=== PATIENT | male | born 1955 | race Caucasian/White ===

== ENCOUNTER 2019-09-08 17:54 | Observation (INO) ==
[2019-09-08 18:44] LABS: Immature Granulocytes % 0.6 % (0-4)
[2019-09-08 18:46] LABS: Basophils % 0.5 %; Eosinophils # 0.2 K/mcL (0.0-0.6); Eosinophils % 1.8 %; Hemoglobin 8.3 g/dL (12.9-16.9); Lymphocytes # 1.9 K/mcL (0.6-4.6); Lymphocytes % 21.4 %; Mean Corpuscular HGB Conc 29.6 g/dL (31.6-35.5); Mean Corpuscular Hemoglobin 25.2 pg (28.0-33.3); Mean Corpuscular Volume 84.8 fL (83.0-100.0); Mean Platelet Volume 8.9 fL (9.4-12.4); Monocytes # 0.7 K/mcL (0.0-1.3); Monocytes % 8.4 %; Neutrophils # 5.9 K/mcL (1.6-8.9); Platelet Count 332 K/mcL (140-400); Red Cell Distribution Width 17.8 % (11.5-14.5); Segmented Neutrophils % 67.3 %; White Blood Count 8.7 K/mcL (4.3-11.1)
[2019-09-08 18:51] LABS: Prothrombin Time 10.8 Seconds (9.4-12.1)
[2019-09-08 19:10] LABS: Anisocytosis 1+ (Not Present); Hypochromasia Present (Not Present); Platelet Estimate Normal (Normal)
[2019-09-08] MEDS ORDERED: Isovue-370 500 ML BOTTLE IVP ONE (19:15)
[2019-09-08 19:21] LABS: BUN/Creatinine Ratio 17 (6-26); Blood Urea Nitrogen 17 mg/dL (8-23); Calcium 8.2 mg/dL (8.6-10.3); Carbon Dioxide 18 mEq/L (23-29); Chloride 110 mEq/L (98-107); Glucose 140 mg/dL (70-105); Osmolality,Calculated 294 (280-300); Potassium 3.5 mEq/L (3.5-5.1); Sodium 140 mEq/L (136-145); Troponin I < 0.03 ng/mL (< 0.04); eGFR For African Americans > 60 (> 60); eGFR For Non-African Americans > 60 (> 60)
[2019-09-08] MEDS ORDERED: Calcium Gluconate 1gm/50mL 1 GM/50 ML BAG IVPB ONE (21:54)
[2019-09-09] MEDS ORDERED: Morphine Sulfate 2 MG/ML SYRINGE IVP ONE (01:41)
[2019-09-09] MEDS ORDERED: traMADol 50 MG TABLET PO PRN (01:56)
[2019-09-09] MEDS ORDERED: *HR* Promethazine 25 MG/ML VIAL IVP PRN (01:56)
[2019-09-09] MEDS ORDERED: Acetaminophen 325 MG TABLET PO PRN (01:56)
[2019-09-09] MEDS ORDERED: Naloxone 0.4 MG/ML INJ IVP PRN (01:56)
[2019-09-09] MEDS: Levalbuterol Neb 1.25 MG/3 ML IH SCH ×4 (02:50→15:31)
[2019-09-09] MEDS: Gabapentin 300 MG CAPSULE PO SCH ×3 (03:52→15:35)
[2019-09-09 04:47] LABS: Hematocrit 27.9 % (37.5-50.1); Hemoglobin 8.2 g/dL (12.9-16.9); Mean Corpuscular HGB Conc 29.4 g/dL (31.6-35.5); Mean Corpuscular Hemoglobin 24.5 pg (28.0-33.3); Mean Corpuscular Volume 83.3 fL (83.0-100.0); Mean Platelet Volume 9.3 fL (9.4-12.4); Platelet Count 320 K/mcL (140-400); Red Blood Count 3.35 M/mcL (4.19-5.50); White Blood Count 10.7 K/mcL (4.3-11.1)
[2019-09-09 05:04] LABS: % Iron Saturation 3 % (20-55); BUN/Creatinine Ratio 16 (6-26); Blood Urea Nitrogen 16 mg/dL (8-23); Calcium 8.3 mg/dL (8.6-10.3); Carbon Dioxide 20 mEq/L (23-29); Chloride 110 mEq/L (98-107); Chol/HDL Ratio 6.7 (0-4.9); Cholesterol 229 mg/dL (< 200); Glucose 101 mg/dL (70-105); HDL Cholesterol 34 mg/dL (40-59); Iron 12 mcg/dL (65-175); Magnesium 1.7 mg/dL (1.6-2.6); Osmolality,Calculated 293 (280-300); Potassium 3.6 mEq/L (3.5-5.1); Sodium 141 mEq/L (136-145); Transferrin 257 mg/dL (203-362); Triglycerides 561 mg/dL (< 150); eGFR For African Americans > 60 (> 60); eGFR For Non-African Americans > 60 (> 60)
[2019-09-09] MEDS ORDERED: Regadenoson 0.4 MG/5 ML SYRINGE IVP ONE (06:22)
[2019-09-09] MEDS ORDERED: Calcium Gluconate 1gm/50mL 1 GM/50 ML BAG IVPB ONE (07:53)
[2019-09-09] MEDS ORDERED: Aspirin 81 MG TAB.CHEW PO SCH (09:00)
[2019-09-09] MEDS ORDERED: Cyanocobalamin (B-12) 1,000 MCG TABLET PO SCH (09:00)
[2019-09-09] MEDS ORDERED: *HR* Heparin 5,000 UNIT/ML VIAL SQ SCH (14:00)
[2019-09-09 15:53] VITALS: BP 142/74
[2019-09-09] MEDS ORDERED: BuPROPion SR (12 HR) 100 MG TABLET PO SCH (21:00)
[2019-09-09] MEDS ORDERED: sulfaSALAzine 500 MG TABLET PO SCH (21:00)
== END 2019-09-09 17:52 | disposition home or self-care (01) ==
LOC: EMEROOARM 17:54 → 3BNU 17:54 → SUATTDRO 22:47 → 3BNU 23:41
PROVIDERS: ADMIT Internal Medicine; ATTEND Pharmacist

== ENCOUNTER 2020-11-08 16:55 | Inpatient (IN) ==
[2020-11-08] MEDS ORDERED: Aspirin 81 MG TAB.CHEW PO ONE (17:33)
[2020-11-08] MEDS ORDERED: Ondansetron 4 MG/2 ML VIAL IVP ONE (17:33)
[2020-11-08] MEDS ORDERED: *HR* FentaNYL (PF) 100 MCG/2 ML VIAL IVP ONE (17:37)
[2020-11-08 18:31] LABS: Basophils # 0.1 K/mcL (0.0-0.2); Basophils % 0.5 %; Eosinophils # 0.2 K/mcL (0.0-0.6); Eosinophils % 2.4 %; Hemoglobin 9.4 g/dL (12.9-16.9); Immature Granulocytes % 0.5 % (0-4); Lymphocytes # 1.7 K/mcL (0.6-4.6); Lymphocytes % 16.5 %; Mean Corpuscular HGB Conc 29.4 g/dL (31.6-35.5); Mean Corpuscular Hemoglobin 25.1 pg (28.0-33.3); Mean Corpuscular Volume 85.6 fL (83.0-100.0); Mean Platelet Volume 8.5 fL (9.4-12.4); Monocytes # 0.6 K/mcL (0.0-1.3); Neutrophils # 7.5 K/mcL (1.6-8.9); Platelet Count 426 K/mcL (140-400); Red Blood Count 3.74 M/mcL (4.19-5.50); Red Cell Distribution Width 16.3 % (11.5-14.5); Segmented Neutrophils % 74.1 %; White Blood Count 10.2 K/mcL (4.3-11.1)
[2020-11-08 19:26] LABS: Alanine Aminotransferase 9 Units/L (7-52); Albumin 3.7 g/dL (3.5-5.7); Albumin/Globulin Ratio 0.9 (1.1-2.2); Alkaline Phosphatase 93 Units/L (34-104); Aspartate Amino Transferase 9 Units/L (13-39); BUN/Creatinine Ratio 12 (6-26); Bilirubin,Indirect 0.2 mg/dL (0.0-1.0); Bilirubin,Total 0.2 mg/dL (0.3-1.0); Blood Urea Nitrogen 18 mg/dL (8-23); Calcium 8.6 mg/dL (8.6-10.3); Carbon Dioxide 19 mEq/L (23-29); Chloride 108 mEq/L (98-107); Glucose 96 mg/dL (70-105); Lipase 24 Units/L (11-82); Magnesium 1.9 mg/dL (1.6-2.6); Osmolality,Calculated 288 (280-300); Potassium 4.4 mEq/L (3.5-5.1); Sodium 138 mEq/L (136-145); Total Protein 7.7 g/dL (6.4-8.9); Troponin I < 0.03 ng/mL (< 0.04); eGFR For African Americans 57 (> 60); eGFR For Non-African Americans 47 (> 60)
[2020-11-08 20:09] LABS: Adenovirus Not Detected (Not Detect); Bordetella Pertussis Not Detected (Not Detect); Chlamydophila pneumoniae Not Detected (Not Detect); Coronavirus 229E Not Detected (Not Detect); Coronavirus HKU1 Not Detected (Not Detect); Coronavirus NL63 Not Detected (Not Detect); Coronavirus OC43 Not Detected (Not Detect); Human Metapneumovirus Not Detected (Not Detect); Human Rhinovirus/Enterovirus Not Detected (Not Detect); Influenza A Subtype 2009 H1 Not Detected (Not Detect); Influenza B Not Detected (Not Detect); Mycoplasma pneumoniae Not Detected (Not Detect); Parainfluenza Virus 1 Not Detected (Not Detect); Parainfluenza Virus 2 Not Detected (Not Detect); Parainfluenza Virus 3 Not Detected (Not Detect); Parainfluenza Virus 4 Not Detected (Not Detect); Respiratory Syncytial Virus Not Detected (Not Detect); SARS-CoV-2 Not Detected (Not Detect)
[2020-11-08 20:52] LABS: Bilirubin,Urine Negative (Negative); Blood,Urine Trace (Negative); Clarity,Urine Clear (Clear); Color,Urine Light-Yellow (Yellow); Glucose,Urine (UA) Normal (Normal); Hyaline Casts,Urine Few per lpf (None Seen); Ketones,Urine Negative (Negative); Leukocyte Esterase,Urine Moderate (Negative); Mucus,Urine Few per lpf (None-Few); Nitrite,Urine Negative (Negative); Protein,Urine 30 mg/dL (Neg-Trace); Specific Gravity,Urine 1.027 (1.010-1.025); Squamous Epithelial Cell,Urine Few per hpf (None-Few); Urobilinogen,Urine Normal (Normal); WBC,Urine 50-100 per hpf (0-3)
[2020-11-08] MEDS: Isovue-370 500 ML BOTTLE IVP ONE ×2 (21:01→21:05)
[2020-11-08] MEDS ORDERED: 0.9 % Sodium Chloride 1,000 ML IVC ONE (21:07)
[2020-11-08] MEDS ORDERED: *HR* HYDROmorphone (PF) 1 MG/ML SYRINGE IVP ONE (22:25)
[2020-11-08] MEDS ORDERED: cefTRIAXone 1,000 MG in Water for inj. (sterile) 10 ML IVP ONE (22:27)
[2020-11-08] MEDS ORDERED: Azithromycin 250 MG TABLET PO ONE (22:27)
[2020-11-09] MEDS ORDERED: Ondansetron 4 MG/2 ML VIAL IVP PRN (02:45)
[2020-11-09] MEDS ORDERED: Acetaminophen 325 MG TABLET PO PRN (02:45)
[2020-11-09] MEDS ORDERED: Naloxone 0.4 MG/ML INJ IVP PRN (02:45)
[2020-11-09 03:52] LABS: Basophils % 0.4 %; Eosinophils # 0.2 K/mcL (0.0-0.6); Eosinophils % 1.9 %; Hematocrit 28.7 % (37.5-50.1); Hemoglobin 8.6 g/dL (12.9-16.9); Immature Granulocytes % 0.3 % (0-4); Lymphocytes # 2.1 K/mcL (0.6-4.6); Lymphocytes % 21.3 %; Mean Corpuscular Hemoglobin 25.5 pg (28.0-33.3); Mean Corpuscular Volume 85.2 fL (83.0-100.0); Mean Platelet Volume 8.4 fL (9.4-12.4); Monocytes # 0.7 K/mcL (0.0-1.3); Monocytes % 6.6 %; Platelet Count 353 K/mcL (140-400); Red Blood Count 3.37 M/mcL (4.19-5.50); Red Cell Distribution Width 16.7 % (11.5-14.5); Segmented Neutrophils % 69.5 %; White Blood Count 10.1 K/mcL (4.3-11.1)
[2020-11-09 04:12] LABS: Calcium 8.4 mg/dL (8.6-10.3); Magnesium 1.8 mg/dL (1.6-2.6); Potassium 4.3 mEq/L (3.5-5.1)
[2020-11-09] MEDS ORDERED: Ipratropium/Albuterol Neb 3 ML IH PRN (06:24)
[2020-11-09] MEDS ORDERED: MethylPREDNISolone 40 MG/ML VIAL IVP SCH (08:00)
[2020-11-09] MEDS: Ascorbic Acid 500 MG TABLET PO SCH (08:49)
[2020-11-09] MEDS: Cyanocobalamin (B-12) 1,000 MCG TABLET PO SCH (08:49)
[2020-11-09] MEDS: BuPROPion SR (12 HR) 100 MG TABLET PO SCH ×2 (08:50→21:22)
[2020-11-09] MEDS: Aspirin 81 MG TAB.CHEW PO SCH (08:50)
[2020-11-09] MEDS: Gabapentin 300 MG CAPSULE PO SCH ×3 (08:50→21:22)
[2020-11-09] MEDS: sulfaSALAzine 500 MG TABLET PO SCH ×2 (08:50→21:22)
[2020-11-09] MEDS: Cholecalciferol (D-3) 1,000 UNIT (25MCG) TABLET PO SCH (08:50)
[2020-11-09] MEDS: cefTRIAXone 1,000 MG in 0.9 % Sodium Chloride Mini Bag 100 ML IVPB SCH (08:50)
[2020-11-09] MEDS: 0.9 % Sodium Chloride 1,000 ML IVC SCH ×2 (08:51→18:37)
[2020-11-09] MEDS: *HR* Heparin 5,000 UNIT/ML VIAL SQ SCH ×2 (12:54→21:23)
[2020-11-09] MEDS: Ipratropium/Albuterol Neb 3 ML IH SCH ×3 (15:42→23:24)
[2020-11-09] MEDS: Budesonide/Formoterol 160/4.5 1 PUFF INH IH SCH (20:36)
[2020-11-09] MEDS: MethylPREDNISolone 40 MG/ML VIAL IVP SCH (21:21)
[2020-11-09] MEDS: traZODone 50 MG TABLET PO SCH (21:22)
[2020-11-09] MEDS: Azithromycin 500 MG in 0.9 % Sodium Chloride 250 ML IVPB SCH (21:23)
[2020-11-10] MEDS: Ipratropium/Albuterol Neb 3 ML IH SCH ×6 (04:10→23:19)
[2020-11-10] MEDS: *HR* Heparin 5,000 UNIT/ML VIAL SQ SCH ×3 (05:17→21:17)
[2020-11-10] MEDS: 0.9 % Sodium Chloride 1,000 ML IVC SCH ×2 (05:17→18:11)
[2020-11-10] MEDS: Budesonide/Formoterol 160/4.5 1 PUFF INH IH SCH ×2 (07:45→20:02)
[2020-11-10 08:45] LABS: BUN/Creatinine Ratio 16 (6-26); Blood Urea Nitrogen 21 mg/dL (8-23); Calcium 9.1 mg/dL (8.6-10.3); Carbon Dioxide 22 mEq/L (23-29); Chloride 106 mEq/L (98-107); Glucose 128 mg/dL (70-105); Osmolality,Calculated 287 (280-300); Potassium 5.2 mEq/L (3.5-5.1); Sodium 136 mEq/L (136-145); eGFR For African Americans > 60 (> 60); eGFR For Non-African Americans 55 (> 60)
[2020-11-10] MEDS: Cholecalciferol (D-3) 1,000 UNIT (25MCG) TABLET PO SCH (09:22)
[2020-11-10] MEDS: Ascorbic Acid 500 MG TABLET PO SCH (09:23)
[2020-11-10] MEDS: BuPROPion SR (12 HR) 100 MG TABLET PO SCH ×2 (09:23→21:22)
[2020-11-10] MEDS: Gabapentin 300 MG CAPSULE PO SCH ×3 (09:23→21:21)
[2020-11-10] MEDS: sulfaSALAzine 500 MG TABLET PO SCH ×2 (09:23→21:21)
[2020-11-10] MEDS: MethylPREDNISolone 40 MG/ML VIAL IVP SCH ×2 (09:23→21:01)
[2020-11-10] MEDS: Aspirin 81 MG TAB.CHEW PO SCH (09:23)
[2020-11-10] MEDS: Cyanocobalamin (B-12) 1,000 MCG TABLET PO SCH (09:23)
[2020-11-10] MEDS: cefTRIAXone 1,000 MG in 0.9 % Sodium Chloride Mini Bag 100 ML IVPB SCH (09:24)
[2020-11-10] MEDS: traZODone 50 MG TABLET PO SCH (21:21)
[2020-11-10] MEDS: Azithromycin 500 MG in 0.9 % Sodium Chloride 250 ML IVPB SCH (21:22)
[2020-11-11] MEDS: Ipratropium/Albuterol Neb 3 ML IH SCH ×3 (03:47→11:43)
[2020-11-11 03:48] LABS: BUN/Creatinine Ratio 22 (6-26); Blood Urea Nitrogen 27 mg/dL (8-23); Calcium 8.3 mg/dL (8.6-10.3); Carbon Dioxide 22 mEq/L (23-29); Chloride 107 mEq/L (98-107); Glucose 103 mg/dL (70-105); Magnesium 1.7 mg/dL (1.6-2.6); Osmolality,Calculated 289 (280-300); Phosphorous 2.8 mg/dL (2.7-4.5); Potassium 3.9 mEq/L (3.5-5.1); Sodium 137 mEq/L (136-145); eGFR For African Americans > 60 (> 60); eGFR For Non-African Americans 58 (> 60)
[2020-11-11] MEDS: *HR* Heparin 5,000 UNIT/ML VIAL SQ SCH (05:56)
[2020-11-11] MEDS: 0.9 % Sodium Chloride 1,000 ML IVC SCH ×2 (07:23→08:12)
[2020-11-11] MEDS: cefTRIAXone 1,000 MG in 0.9 % Sodium Chloride Mini Bag 100 ML IVPB SCH (08:13)
[2020-11-11] MEDS: BuPROPion SR (12 HR) 100 MG TABLET PO SCH (08:19)
[2020-11-11] MEDS: Cyanocobalamin (B-12) 1,000 MCG TABLET PO SCH (08:19)
[2020-11-11] MEDS: Cholecalciferol (D-3) 1,000 UNIT (25MCG) TABLET PO SCH (08:19)
[2020-11-11] MEDS: Aspirin 81 MG TAB.CHEW PO SCH (08:19)
[2020-11-11] MEDS: Gabapentin 300 MG CAPSULE PO SCH (08:19)
[2020-11-11] MEDS: Ascorbic Acid 500 MG TABLET PO SCH (08:19)
[2020-11-11] MEDS: sulfaSALAzine 500 MG TABLET PO SCH (08:19)
[2020-11-11] MEDS: Budesonide/Formoterol 160/4.5 1 PUFF INH IH SCH (08:27)
[2020-11-11] MEDS ORDERED: predniSONE 20 MG TABLET PO SCH (09:00)
[2020-11-11 11:31] VITALS: BP 132/77
== END 2020-11-11 14:04 | disposition home health service (06) | DRG 193 ==
LOC: 3BNU 16:55 → EMEROOARM 16:55 → SUATTDRO 11-09 01:50 → 3BNU 11-09 02:39
PROVIDERS: ADMIT Pharmacist; ATTEND Internal Medicine